=== PATIENT | female | born 1995 | race African-American/Black ===

== ENCOUNTER 2017-03-23 06:48 | Emergency (ER) | payer MEDICAID, OTHER ==
[~2017-03-23] VITALS: Ht 162.6 cm; Wt 96.0 kg
[2017-03-23] MEDS ORDERED: ACETAMINOPHEN 500MG TABLET PO ONE (10:15)
[2017-03-23 10:33] LABS: CLARITY URINE CLEAR (CLEAR); COLOR URINE YELLOW (YELLOW); KETONES URINE NEGATIVE (NEGATIVE); LEUKOCYTE ESTERASE URINE TRACE (NEGATIVE); NITRITE URINE NEGATIVE (NEGATIVE); OCCULT BLOOD URINE 1+ (NEGATIVE); PH URINE 6.5 (4.5-8.0); PROTEIN URINE NEGATIVE (NEGATIVE); SPECIFIC GRAVITY URINE 1.008 (1.005-1.030); UROBILINOGEN URINE 0.2 E.U./dL (0.2-1.0)
[2017-03-23 11:40] VITALS: BP 119/58
== END 2017-03-23 12:13 | disposition home or self-care (01) ==
LOC: ER 10:32
DX: J02.9 Acute pharyngitis, unspecified (principal); R03.0 Elevated blood-pressure reading, without diagnosis of hypertension; F12.90 Cannabis use, unspecified, uncomplicated
CPT/HCPCS: 81001; 81025; 87070; 87430; 99284; Z7610

== ENCOUNTER 2017-09-10 14:52 | Emergency (ER) | payer MEDICAID, OTHER | END 2017-09-10 16:00 | disposition left against medical advice (07) | LOC: ER 15:23 | DX: Z53.21 Procedure and treatment not carried out due to patient leaving prior to being seen by health care provider (principal) ==

== ENCOUNTER 2017-10-29 12:31 | Emergency (ER) | payer OTHER ==
[~2017-10-29] VITALS: Ht 162.6 cm; Wt 91.0 kg
[2017-10-29] MEDS ORDERED: KETOROLAC 15MG/ML VIAL IM ONE (13:00)
[2017-10-29 13:07] VITALS: BP 121/56
== END 2017-10-29 13:14 | disposition home or self-care (01) ==
LOC: ER 12:31
DX: S93.401A Sprain of unspecified ligament of right ankle, initial encounter (principal); J45.909 Unspecified asthma, uncomplicated; V89.2XXA Person injured in unspecified motor-vehicle accident, traffic, initial encounter; Y93.89 Activity, other specified; Y92.89 Other specified places as the place of occurrence of the external cause; Y99.8 Other external cause status
CPT/HCPCS: 96372; 99283; J1885

== ENCOUNTER 2018-01-27 15:36 | Emergency (ER) | payer MEDICAID, OTHER ==
[~2018-01-27] VITALS: Ht 165.1 cm; Wt 114.0 kg
[2018-01-27 16:29] VITALS: BP 135/75
== END 2018-01-27 21:00 | disposition left against medical advice (07) ==
LOC: ER 17:07
DX: M25.571 Pain in right ankle and joints of right foot (principal); Z87.81 Personal history of (healed) traumatic fracture; W01.0XXA Fall on same level from slipping, tripping and stumbling without subsequent striking against object, initial encounter; Y93.89 Activity, other specified; Y92.018 Other place in single-family (private) house as the place of occurrence of the external cause
CPT/HCPCS: 99281

== ENCOUNTER 2018-09-14 15:41 | Emergency (ER) | payer MEDICAID, OTHER ==
[~2018-09-14] VITALS: Ht 162.6 cm; Wt 113.5 kg
[2018-09-14] MEDS ORDERED: IBUPROFEN 600MG TABLET PO ONE (17:45)
[2018-09-14] MEDS ORDERED: HYDROCODONE/ACETAMINOPHEN 5/325MG TABLET PO ONE (18:45)
[2018-09-14 19:24] VITALS: BP 135/69
== END 2018-09-14 19:58 | disposition home or self-care (01) ==
LOC: ER 15:41
DX: S00.83XA Contusion of other part of head, initial encounter (principal); S60.221A Contusion of right hand, initial encounter; Y08.89XA Assault by other specified means, initial encounter; Y93.89 Activity, other specified; Y92.89 Other specified places as the place of occurrence of the external cause
CPT/HCPCS: 70110; 73130; 81025; 99283

== ENCOUNTER 2020-02-29 17:02 | Emergency (ER) | payer MEDICAID, OTHER ==
[~2020-02-29] VITALS: Ht 162.6 cm; Wt 104.0 kg
[2020-02-29 18:43] LABS: CLARITY URINE CLEAR (CLEAR); COLOR URINE YELLOW (YELLOW); KETONES URINE NEGATIVE (NEGATIVE); LEUKOCYTE ESTERASE URINE TRACE (NEGATIVE); NITRITE URINE NEGATIVE (NEGATIVE); OCCULT BLOOD URINE TRACE (NEGATIVE); PROTEIN URINE NEGATIVE (NEGATIVE); SPECIFIC GRAVITY URINE 1.011 (1.005-1.030); UROBILINOGEN URINE 0.2 E.U./dL (0.2-1.0)
[2020-02-29] MEDS ORDERED: KETOROLAC 30MG/ML VIAL IM ONE (19:00)
[2020-02-29 19:42] VITALS: BP 142/89
== END 2020-02-29 19:43 | disposition home or self-care (01) ==
LOC: ER 17:02
DX: M54.5 Low back pain (principal); R07.9 Chest pain, unspecified; J45.909 Unspecified asthma, uncomplicated
CPT/HCPCS: 71045; 72100; 81003; 81025; 96372; 99284; J1885

== ENCOUNTER 2021-02-14 15:48 | Emergency (ER) | payer MEDICAID, OTHER ==
[~2021-02-14] VITALS: Ht 162.6 cm; Wt 100.0 kg
[2021-02-14] MEDS ORDERED: KETOROLAC 60MG/2ML VIAL IM STA (16:39)
[2021-02-14 16:47] VITALS: BP 134/70
[2021-02-14] MEDS ORDERED: IBUP-2030 PO (18:02)
== END 2021-02-14 18:27 | disposition home or self-care (01) ==
LOC: ER 16:45
DX: S93.491A Sprain of other ligament of right ankle, initial encounter (principal); S89.81XA Other specified injuries of right lower leg, initial encounter; Y07.499 Other family member, perpetrator of maltreatment and neglect; Y04.2XXA Assault by strike against or bumped into by another person, initial encounter; Y93.89 Activity, other specified; Y92.89 Other specified places as the place of occurrence of the external cause
CPT/HCPCS: 73562; 73590; 73610; 96372; 99284; J1885

== ENCOUNTER 2022-07-06 21:04 | Emergency (ER) | payer OTHER ==
[~2022-07-06] VITALS: Ht 162.6 cm; Wt 136.8 kg
[~2022-07-06 21:04] MED LIST: IBUP-2030 PO
[2022-07-07] MEDS ORDERED: HYDROCODONE/ACETAMINOPHEN 5/325MG TABLET PO ONE (04:30)
[2022-07-07] MEDS ORDERED: IBUP-2030 MT (06:03)
[2022-07-07] MEDS ORDERED: CYCL10TA21 MT (06:03)
[2022-07-07 06:29] VITALS: BP 135/88
== END 2022-07-07 06:31 | disposition home or self-care (01) ==
LOC: ER 21:11
DX: S80.11XA Contusion of right lower leg, initial encounter (principal); V49.49XA Driver injured in collision with other motor vehicles in traffic accident, initial encounter; Y93.89 Activity, other specified; Y92.89 Other specified places as the place of occurrence of the external cause; Y99.8 Other external cause status; S40.022A Contusion of left upper arm, initial encounter; S10.93XA Contusion of unspecified part of neck, initial encounter; J45.909 Unspecified asthma, uncomplicated
CPT/HCPCS: 73562; 73610; 81025; 99284

== ENCOUNTER 2024-08-26 08:58 | Emergency (ER) | payer OTHER ==
[~2024-08-26] VITALS: Ht 172.7 cm; Wt 127.0 kg
[~2024-08-26 08:58] MED LIST changes: +CYCL10TA21 MT; +IBUP-2030 MT
[2024-08-26 09:10] VITALS: BP 135/80; PULSE 98; RESP 16; TEMP 97.9; O2SAT 96
[2024-08-26] MEDS ORDERED: IBUP-2030 MT (10:41)
== END 2024-08-26 11:01 | disposition home or self-care (01) ==
LOC: ER 09:11
DX: S63.601A Unspecified sprain of right thumb, initial encounter (principal); J45.909 Unspecified asthma, uncomplicated; W18.30XA Fall on same level, unspecified, initial encounter; Y93.89 Activity, other specified; Y92.89 Other specified places as the place of occurrence of the external cause; Y99.8 Other external cause status
CPT/HCPCS: 73130; 99283

== ENCOUNTER 2024-11-16 15:34 | Emergency (ER) | payer MEDICAID, OTHER ==
[~2024-11-16] VITALS: Ht 170.2 cm; Wt 121.0 kg
[2024-11-16 16:12] VITALS: O2SAT 99
[2024-11-16 22:20] VITALS: TEMP 36.9; O2SAT 99
[2024-11-16 22:24] VITALS: BP 156/95; PULSE 88; RESP 18
[2024-11-16] MEDS: KETOROLAC 15MG/ML VIAL IM ONE (22:24)
== END 2024-11-16 23:18 | disposition home or self-care (01) ==
LOC: ER 15:34
DX: S09.8XXA Other specified injuries of head, initial encounter (principal); F10.90 Alcohol use, unspecified, uncomplicated; J45.909 Unspecified asthma, uncomplicated; Y08.89XA Assault by other specified means, initial encounter; Y93.89 Activity, other specified; Y92.89 Other specified places as the place of occurrence of the external cause; Y99.8 Other external cause status; Y90.9 Presence of alcohol in blood, level not specified
CPT/HCPCS: 81025; 70450; 70486; 96372; 99285; J1885; Z7610